=== PATIENT | female | born 1945 | race Caucasian/White ===

== ENCOUNTER 2024-07-29 06:53 | Day surgery (SDC) | payer OTHER ==
[~2024-07-29] VITALS: Ht 162.6 cm; Wt 70.7 kg
[2024-07-29] MEDS ORDERED: FISH OIL 1,0001 EA10 (07:34)
[2024-07-29] MEDS ORDERED: LATA.005SO (07:34)
[2024-07-29] MEDS ORDERED: TIMO.5OPSO (07:34)
[2024-07-29] MEDS ORDERED: ERGO400 (07:35)
[2024-07-29] MEDS ORDERED: CALCIUM 500 MG1 EAC2 (07:35)
[2024-07-29] MEDS ORDERED: propofoL 50 ML IV ONE (08:17)
[2024-07-29] MEDS ORDERED: Lactated Ringer's 1,000 ML IV ONE ×2 (08:17→08:31)
[2024-07-29 09:47] VITALS: BP 136/72
== END 2024-07-29 09:51 | disposition home or self-care (01) ==
LOC: ORSCSDS 06:53
PROVIDERS: Internal Medicine Gastroenterology
PROC: 0D758ZZ Dilation of Esophagus, Via Natural or Artificial Opening Endoscopic (ICD-10-PCS; principal; 2024-07-29 08:45)
DX: R13.10 Dysphagia, unspecified (principal); Z85.21 Personal history of malignant neoplasm of larynx; E11.9 Type 2 diabetes mellitus without complications; E78.5 Hyperlipidemia, unspecified; Z79.899 Other long term (current) drug therapy
CPT/HCPCS: 82947; C1769; J2704; J7120